=== PATIENT | female | born 1980 | race African-American/Black ===

== ENCOUNTER 2023-08-12 10:46 | Emergency (ER) | payer BC, MEDICAID, SELFPAY ==
--- NOTE | ~2023-08-12 | XR_ITS ---
EXAMINATION: XR abdomen/kub 1V DATE: 08/12/2023 11:36 INDICATION: Epigastric abdominal discomfort with nausea and vomiting TECHNIQUE: A supine view of the abdomen was obtained. COMPARISON: None. FINDINGS: Normal bowel gas pattern with moderate amount of stool scattered throughout the colon and no dilated loops of gas-filled bowel to suggest obstruction. A few round likely phleboliths in the pelvis. No ot her suspicious calcifications in the abdomen or pelvis. Bones are unremarkable. IMPRESSION: 1. Normal bowel gas pattern. Reviewed, dictated and finalized at location A. ENTRY
--- NOTE | 2023-08-12 10:52 | ED.NAVMDI ---
HPI - Nausea/Vomiting/Diarrhea General Chief complaint: Nausea/Vomiting/Diarrhea Stated complaint: Nausea/Vomiting/Headache Time Seen by Provider: 08/12/23 10:52 Source: patient Mode of arrival: ambulatory Limitations: no limitations History of Present Illness HPI Narrative: Kyra is a 42-year-old female patient presenting to the clinic today with complaints of nausea, vomiting, diarrhea,and headache. She reports symptoms started on into Saturday. States she had 8-9 episodes of diarrhea on Saturday. States that she vomited about 4 times on and noticed some blood in her emesis. She is reporting some abdominal discomfort to the mid abdomen with some nausea at this time. Headache started this morning. Has take ibuprofen but headache and this relieved her headache however it came back. Denies any chest pain or shortness of breath. Denies any GERD symptoms. Pain is not worse when eating or right after eating. History of gastritis in the past. Is currently on Wegovy at 1.7 mg for weight loss. Currently on her menses-started yesterday. No concern for . Related Data Home Medications Medication Instructions Recorded Confirmed hydrochlorothiazide 25 mg tablet 25 mg PO DAILY 08/12/23 08/12/23 semaglutide (weight loss) 1.7 1.7 mg subcut WEEKLY 08/12/23 08/12/23 mg/0.75 mL subcutaneous pen injector (Wegovy) Allergies Allergy/AdvReac Type Severity Reaction Status Date / Time No Known Allergies Allergy Verified 08/12/23 11:11 Review of Systems Review of Systems: Pertinent positives per HPI. Patient denies any fever, chills, rash, visual changes, dizziness, cough, shortness of breath, chest pain, palpitations, diarrhea, constipation, or any urinary issues. PMFSH Comments At the time of my signature, I reviewed and agree with the nursing past medical, surgical, social, and family history. There is no relevant family history pertinent to the patient complaint. Exam Narrative: General: Well-developed, well nourished, in no apparent distress Head: Normocephalic, atraumatic Eyes: Pupils equally round and reactive to light bilaterally, EOM intact, sclera and conjunctive clear, no discharge, lids normal Ears: TMs intact and clear, ear canals clear, no drainage, grossly hearing normal. Nose: Nares patent, no discharge, no inflammation, no sinus tenderness. Mouth: Oral pharynx without lesions or masses, good dentition, MMM. Neck: Supple, trachea midline, no enlargement of anterior or posterior cervical nodes, no thyroid masses or goiter palpable. Cardio: Regular rate and rhythm, s1 and s2 normal, no murmur appreciated. Resp: Clear to auscultation bilaterally, no rhonchi, rales, wheezing or rubs Abdomen: Soft, pliable, bowel sounds present in all quadrants, mild mid and epigastric abdominal tenderness to palpation, no organomegly, no CVAT tenderness. Course Course Emergency Course: Portions of this record may have been created with voice recognition software. Level of Care: Express Care Visit Vital Signs Vital signs: Vital signs reviewed MDM - Nausea/Vomiting/Diarrhea MDM Narrative Medical decision making narrative: At the time of visit patient is resting comfortably on the exam table. Patient appears to be nontoxic. UA dip shows 2+ blood but patient is on her menses. Specific gravity is 1.025. Trace of protein without any sign of infection. Xray of the abdomen was performed and negative for any sign of obstruction, mass, or constipation. I suspect patient has gastroenteritis. Prescription for Protonix and Zofran was sent to the pharmacy. Work note was given to the patient. Supportive measures were discussed with the patient and they voiced understanding discharge instructions and agrees to treatment plan. Return precautions reviewed Differential Diagnosis Differential diagnosis: Likely food poisoning, gastroenteritis, clostridium difficile infection and dehydration Disch
[2023-08-12 11:03] VITALS: BP 138/98; PULSE 79; RESP 18; TEMP 36.7; O2SAT 100
== END 2023-08-12 11:55 | disposition home or self-care (01) ==
PROVIDERS: Emergency Provider Nurse Practitioner Family; PCP Nurse Practitioner Family
DX: K52.9 Noninfective gastroenteritis and colitis, unspecified (principal)
CPT/HCPCS: 74018; 81003; 99203; G0463